=== PATIENT | female | born 1985 | race Caucasian/White ===

== ENCOUNTER 2017-12-17 13:38 | Emergency (ER) | payer OTHER ==
[~2017-12-17] VITALS: Ht 154.9 cm; Wt 104.5 kg
[~2017-12-17 13:38] MED LIST: NOCURR
[2017-12-17 15:26] VITALS: BP 141/76
== END 2017-12-17 16:12 | disposition home or self-care (01) ==
LOC: EMS 13:38
DX: L03.116 Cellulitis of left lower limb (principal); R03.0 Elevated blood-pressure reading, without diagnosis of hypertension; Z48.00 Encounter for change or removal of nonsurgical wound dressing
CPT/HCPCS: 99283

== ENCOUNTER 2019-10-05 09:56 | Emergency (ER) | payer OTHER ==
[~2019-10-05] VITALS: Ht 154.9 cm; Wt 104.5 kg
[2019-10-05 13:49] VITALS: BP 135/86
== END 2019-10-05 13:50 | disposition home or self-care (01) ==
LOC: EDUNIT# 09:56 → EMS 09:58
DX: S62.634A Displaced fracture of distal phalanx of right ring finger, initial encounter for closed fracture (principal); R03.0 Elevated blood-pressure reading, without diagnosis of hypertension; Y08.89XA Assault by other specified means, initial encounter; Y93.89 Activity, other specified; Y92.89 Other specified places as the place of occurrence of the external cause; Y99.8 Other external cause status

== ENCOUNTER 2022-02-28 10:00 | Emergency (ER) | payer OTHER ==
[~2022-02-28] VITALS: Ht 154.9 cm; Wt 102.3 kg
[2022-02-28 12:26] LABS: COVID AG,FIA SOURCE NASOPHARYNGEAL
[2022-02-28 12:40] VITALS: BP 109/71
[2022-02-28 12:45] LABS: INFLUENZA TYPE A NEGATIVE FOR TYPE A (NEGATIVE); INFLUENZA TYPE B NEGATIVE FOR TYPE B (NEGATIVE)
[2022-02-28] MEDS ORDERED: PENICILLIN G BENZATHINE LA 1,200,000 UNITS/2 ML SYRINGE IM ONE (13:00)
== END 2022-02-28 13:30 | disposition home or self-care (01) ==
LOC: EMS 10:04
DX: J02.9 Acute pharyngitis, unspecified (principal); R50.9 Fever, unspecified; Z20.822 Contact with and (suspected) exposure to COVID-19
CPT/HCPCS: 36415; 86308; 87426; 87430; 87804; 96372; 99283; J0561

== ENCOUNTER 2022-05-25 10:24 | Emergency (ER) | payer OTHER ==
[~2022-05-25] VITALS: Ht 157.5 cm; Wt 103.0 kg
[2022-05-25 10:27] VITALS: BP 127/93
[2022-05-25] MEDS ORDERED: ACETAMINOPHEN 500 MG TABLET PO ONE (11:45)
[2022-05-25] MEDS ORDERED: PERTUSS(ACELL),DIPH,TET VAC/PF 0.5 ML SYRINGE IM. ONE (11:45)
[2022-05-25] MEDS ORDERED: IBUP-1554 PO (13:07)
[2022-05-25] MEDS ORDERED: CEPH-558 PO (13:11)
== END 2022-05-25 14:57 | disposition home or self-care (01) ==
LOC: EMS 10:24
DX: S61.412A Laceration without foreign body of left hand, initial encounter (principal); Z79.899 Other long term (current) drug therapy; W45.8XXA Other foreign body or object entering through skin, initial encounter; Y93.89 Activity, other specified; Y92.89 Other specified places as the place of occurrence of the external cause; Y99.8 Other external cause status
CPT/HCPCS: 90471; 90715; 99283

== ENCOUNTER 2023-01-17 12:04 | Emergency (ER) | payer OTHER ==
[~2023-01-17] VITALS: Ht 157.5 cm; Wt 97.7 kg
[~2023-01-17 12:04] MED LIST changes: +CEPH-558 PO; +IBUP-1554 PO; -NOCURR
[2023-01-17] MEDS ORDERED: METR500 PO (14:16)
[2023-01-17 14:39] LABS: APPEARANCE,URINE CLEAR (CLEAR); BILIRUBIN,URINE NEGATIVE (NEGATIVE); GLUCOSE, URINE (UA) NEGATIVE (NEGATIVE); KETONES,URINE NEGATIVE (NEGATIVE); LEUKOCYTE ESTERASE ,URINE SMALL (NEGATIVE); NITRATE,URINE NEGATIVE (NEGATIVE); OCCULT BLOOD,URINE NEGATIVE (NEGATIVE); PH,URINE 6.5 (5.0-8.0); PROTEIN,URINE NEGATIVE (NEGATIVE); SPECIFIC GRAVITIY, URINE 1.025 (1.003-1.030); UROBILINOGEN,URINE <=1.0 mg/dL (<=1.0)
[2023-01-17 14:40] VITALS: BP 139/82
[2023-01-17 14:47] LABS: BACTERIA,URINE None Seen /HPF (None Seen); RBC,URINE None Seen /HPF (0-2); SQUAMOUS EPITHELIAL CELL,UR Moderate /LPF (None Seen)
== END 2023-01-17 15:05 | disposition home or self-care (01) ==
LOC: EMS 12:19
DX: N76.0 Acute vaginitis (principal); N83.209 Unspecified ovarian cyst, unspecified side
CPT/HCPCS: 81001; 99283

== ENCOUNTER 2023-09-01 11:35 | Emergency (ER) | payer OTHER ==
[~2023-09-01] VITALS: Ht 154.9 cm; Wt 103.0 kg
[~2023-09-01 11:35] MED LIST changes: +METR500 PO
[2023-09-01 11:37] VITALS: BP 126/94; PULSE 83; RESP 16; TEMP 98.4
[2023-09-01] MEDS ORDERED: KETOROLAC TROMETHAMINE 60 MG/2 ML VIAL IM ONE (14:15)
[2023-09-01] MEDS ORDERED: METHOCARBAMOL 500 MG TABLET PO ONE (14:15)
[2023-09-01] MEDS ORDERED: IBUP-1492 PO (14:36)
[2023-09-01] MEDS ORDERED: PERCT PO (14:37)
[2023-09-01] MEDS ORDERED: METH-659 PO (14:37)
== END 2023-09-01 15:07 | disposition home or self-care (01) ==
LOC: EMS 11:39
DX: S39.012A Strain of muscle, fascia and tendon of lower back, initial encounter (principal); Z98.890 Other specified postprocedural states; X58.XXXA Exposure to other specified factors, initial encounter; Y93.89 Activity, other specified; Y92.89 Other specified places as the place of occurrence of the external cause; Y99.8 Other external cause status
CPT/HCPCS: 99283; 96372; J1885

== ENCOUNTER 2023-09-05 10:27 | Emergency (ER) | payer OTHER ==
[~2023-09-05] VITALS: Ht 154.9 cm; Wt 104.5 kg
[~2023-09-05 10:27] MED LIST changes: +IBUP-1492 PO; +METH-659 PO; +PERCT PO
[2023-09-05 10:30] VITALS: TEMP 98.6
[2023-09-05] MEDS ORDERED: KETOROLAC TROMETHAMINE 30 MG/ML VIAL IM ONE (12:15)
[2023-09-05] MEDS ORDERED: LIDOCAINE 5% TRANSDERMAL PATCH TD ONE (13:00)
[2023-09-05 13:26] VITALS: BP 136/89; PULSE 71; RESP 18
== END 2023-09-05 13:38 | disposition home or self-care (01) ==
LOC: EMS 10:44
DX: S39.012A Strain of muscle, fascia and tendon of lower back, initial encounter (principal); M54.31 Sciatica, right side; X58.XXXA Exposure to other specified factors, initial encounter; Y93.89 Activity, other specified; Y92.89 Other specified places as the place of occurrence of the external cause; Y99.8 Other external cause status
CPT/HCPCS: 99283; 96372; J1885